=== PATIENT | female | born 1995 | race Caucasian/White ===

== ENCOUNTER 2016-09-23 18:09 | Emergency (ER) | payer MEDICAID ==
[~2016-09-23] VITALS: Ht 157.5 cm; Wt 86.2 kg
[2016-09-23 18:14] VITALS: BP 110/70
[2016-09-23] MEDS ORDERED: LORazepam 1mg tab ORAL ONE (18:30)
--- NOTE | 2016-09-23 18:57 | Emergency Room Report ---
History of Present Illness General Chief Complaint: General Complaint Source: Patient, EMS Present Illness HPI 21-year-old female presents to emergency Department complaining of chest pain/ palpitations, with 9/10 pain in all of her joints in addition to sore throat which she believes is strep throat. Pt states the pain is so strong it makes her nauseated, denies vomiting. She reports chills and night sweats she denies fevers. She states she had Advil prior to arrival. Pt states she usually gets Strep throat approximately 4 times each year. Patient also reports intermittent cough. Patient denies recent travel, ill contacts. Patient denies cardiac history, patient denies dyspnea or pain with breathing. Patient reports that her throat is her most significant symptom at this time. Denies rash, SOB, LOC , AMS, dizziness, Changes in Vision, Sensation, paresthesias, , or a sudden severe headache. Pt denies drug use. Pt requests tramadol for pain. Allergies: Coded Allergies: No Known Allergies (Unverified , 09/23/16) Patient History Past Medical History: see triage record Past Surgical History: none Pertinent Family History: none Last Menstrual Period: on period Now: No Immunizations: UTD Reviewed Nursing Documentation: PMH: Agreed, PSxH: Agreed Nursing Documentation-PMH Past Medical History: No Stated History Review of Systems All Other Systems: negative except mentioned in HPI Physical Exam Vital Signs Date Time Temp Pulse Resp B/P Pulse Ox O2 Delivery O2 Flow Rate FiO2 09/23/16 18:05 98.1 80 16 110/70 98 Room Air Sp02 EP Interpretation: reviewed, normal General Appearance: no apparent distress, alert, GCS 15, non-toxic Head: normocephalic, atraumatic Eyes: bilateral eye PERRL, bilateral eye normal inspection ENT: hearing grossly normal, normal pharynx, no angioedema, normal voice, TMs + canals normal, uvula midline, moist mucus membranes, tonsillar swelling - several tonsiliths are noted., pharyngeal erythema, other - no evidence of tonsillar exudates, or petechiae of the soft palate. Neck: no meningismus, no bony tend Respiratory: chest non-tender, lungs clear, normal breath sounds, no rhonchi, no respiratory distress, no retraction, no accessory muscle use, no wheezing Cardiovascular #1: regular rate, rhythm, no edema Gastrointestinal: normal bowel sounds, non tender, soft, no guarding, no rebound Rectal: deferred Musculoskeletal: back normal, gait/station normal, normal range of motion, non- tender, no calf tenderness Neurologic: alert, oriented x3, responsive, motor strength/tone normal, sensory intact, speech normal Psychiatric: judgement/insight normal, memory normal, mood/affect normal, no suicidal/homicidal ideation, anxious - Pt is very anxious, and attempts to manage her medical care and pharmacological care durring the ED visit. Skin: normal color, no rash, warm/dry, well hydrated Lymphatic: no adenopathy Medical Decision Making PA Attestation Dr. Li is my supervising Physician whom patient management has been discussed with. Diagnostic Impression: Primary Impression: Pharyngitis, acute Qualified Codes: J02.9 - Acute pharyngitis, unspecified Additional Impression: Acute viral syndrome ER Course Pt. presents to the ED c/o : sore throat, tonsillar swelling, and nasal congestion x 2 days, with night sweats, chills, and intermittent cough. Ddx considered but are not limited to: pharyngitis, strep, HAND SHOE CUTTER, ludwigs angina, URI, anxiety, PE, ACS, [place], anxiety Vital signs: are WNL, pt. is afebrile H&PE are most consistent with: acute viral syndrome due to hx of night sweats, chills, and pain in the joints of the body. PE does not suggest acute bacterial infection of the tonsils or pharynx. pt. does not meet [facility] criteria. ORDERS: -EK BPM NSR no acute ST changes, pt. not given asa in ED- interpreted by Dr. Li -BMP: WNL no evidence of acute electrolyte imbalance that would cause palpitations. -UDS: Positive for THC ED INTERVENTIONS: -1mg Ativan po - 8mg Decadron IM Pt Education: d/w pt. antibiotic resistance, went over [facility] criteria, and well as discussed viral vs. bacterial symptoms. DISCHARGE: At this time pt. is stable for d/c to home. Will provide printed patient care instructions, and any necessary prescriptions. Care plan and follow up instructions have been discussed with the patient prior to discharge. Labs Test 09/23/16 18:35 09/23/16 18:40 Urine Opiates Screen Negative (NEGATIVE) Urine Barbiturates Screen Negative (NEGATIVE) Phencyclidine (PCP) Screen Negative (NEGATIVE) Urine Amphetamines Screen Negative (NEGATIVE) Urine Benzodiazepines Screen Negative (NEGATIVE) Urine Cocaine Screen Negative (NEGATIVE) Urine Marijuana (THC) Screen Positive (NEGATIVE) Sodium Level 136 mEQ/L (135-145) Potassium Level 4.2 mEQ/L (3.4-4.9) Chloride Level 94 mEQ/L (98-107) Carbon Dioxide Level 23 mEQ/L (20-30) Anion Gap 19 (5-15) Blood Urea Nitrogen 10 mg/dL (7-23) Creatinine 0.7 mg/dL (0.5-0.9) Estimat Glomerular Filtration Rate > 60 mL/min (>60) Glucose Level 112 mg/dL (74-106) Calcium Level 9.6 mg/dL (8.6-10.2) EKG Diagnostic Results Rate: normal - 88BPM Rhythm: NSR ST Segments: no acute changes ASA given to the pt in ED: No PA Scribe Text interpreted by Dr. Li Last Vital Signs Date Time Temp Pulse Resp B/P Pulse Ox O2 Delivery O2 Flow Rate FiO2 09/23/16 18:14 16 110/70 98 Room Air 09/23/16 18:05 98.1 80 Disposition: HOME, SELF-CARE Condition: Stable Scripts Ibuprofen* (MOTRIN*) 600 Mg Tablet 600 MG ORAL THREE TIMES A DAY, #30 TAB 0 Refills Prov: Katie Taylor 09/23/16 Lidocaine HCl (Lidocaine HCl Viscous) 100 Ml Solution 20 ML PO TID for For Pain, #120 ML Prov: Katie Taylor 09/23/16 Oseltamivir Phosphate (Tamiflu) 75 Mg Capsule 75 MG ORAL TWICE A DAY for 5 Days, CAP Prov: Katie Taylor 09/23/16 Patient Instructions: Pharyngitis, Tonsillitis Additional Instructions: Take medications as directed. Follow up with PCP in 3-5 days, if symptoms persist throat culture is indicated. Return sooner to ED if new symptoms occur, or current symptoms become worse. Katie Taylor Sep 23, 2016 18:57
[2016-09-23 19:00] LABS: ANION GAP 19 (5-15); CALCIUM 9.6 mg/dL (8.6-10.2); CARBON DIOXIDE 23 mEQ/L (20-30); CHLORIDE 94 mEQ/L (98-107); CREATININE 0.7 mg/dL (0.5-0.9); GLOMERULAR FILTRATION RATE > 60 mL/min (>60); HEMOLYSIS 6; POTASSIUM 4.2 mEQ/L (3.4-4.9); SODIUM 136 mEQ/L (135-145)
[2016-09-23] MEDS ORDERED: Dexamethasone 4mg/ml vial IM ONE (19:45)
[2016-09-23 20:15] VITALS: BP 110/70
[2016-09-23] MEDS ORDERED: LIDOCAINE VISCO20 ML PO (20:20)
[2016-09-23] MEDS ORDERED: IBUPROFEN600 MG ORAL (20:20)
[2016-09-23] MEDS ORDERED: TAMIFLU75 MG ORAL (20:20)
--- NOTE | 2016-09-24 17:41 | Cardiology Report ---
APPROVED REPORT EKG Measurement Heart [id number] Normal sinus rhythm Normal ECG
== END 2016-09-23 20:28 | disposition home or self-care (01) ==
LOC: EDBD 18:09 → EMR 18:58
DX: J02.9 Acute pharyngitis, unspecified (principal); B34.9 Viral infection, unspecified
CPT/HCPCS: 36415; 80048; 80300; 93005; 96372; 99283; J1100

== ENCOUNTER 2018-04-25 10:25 | Emergency (ER) | payer MEDICAID ==
[~2018-04-25] VITALS: Ht 157.5 cm; Wt 91.2 kg
[~2018-04-25 10:25] MED LIST: IBUPROFEN600 MG ORAL; LIDOCAINE VISCO20 ML PO; TAMIFLU75 MG ORAL
--- NOTE | 2018-04-25 10:51 | Emergency Room Report ---
History of Present Illness General Chief Complaint: Vaginal Source: Patient Present Illness HPI Patient is a 22-year-old female who presented after increased vaginal discharge as well as followed her. Patient states that she's had prior history of yeast infections as well as bacterial vaginosis in the past. Patient reports having similar odor and discharge. She denies any fever. She denies any severe abdominal pain. Patient had previous been using NuvaRing. She denies being . She is . She denies any recent unprotected sex. Discharge been present for one week. This is described as thick and cottage cheese like Allergies: Coded Allergies: No Known Allergies (Unverified , 09/23/16) Patient History Past Medical History: see triage record Now: No Reviewed Nursing Documentation: PMH: Agreed; PSxH: Agreed Nursing Documentation-PMH Past Medical History: No Stated History Review of Systems All Other Systems: negative except mentioned in HPI Physical Exam Vital Signs Date Time Temp Pulse Resp B/P (MAP) Pulse Ox O2 Delivery O2 Flow Rate FiO2 04/25/18 10:29 98.3 75 19 109/67 96 Room Air 98.2 General Appearance: well appearing, no apparent distress, alert, GCS 15, obese Head: normocephalic, atraumatic ENT: hearing grossly normal, normal voice Neck: full range of motion, supple Respiratory: no respiratory distress, speaking full sentences Cardiovascular #1: normal inspection Gastrointestinal: normal inspection, normal bowel sounds, non tender, soft Genitourinary: normal inspection, no CVA tenderness, deferred Musculoskeletal: normal range of motion, no calf tenderness Neurologic: normal inspection, alert, oriented x3, responsive, screw supervisor III-XII nml as tested, normal gait Psychiatric: mood/affect normal Skin: no rash Medical Decision Making Diagnostic Impression: Primary Impression: Vaginal discharge Additional Impression: Yeast infection ER Course The patient presented for vaginal discharge. Differential diagnosis included was not limited to a yeast infection, physiologic discharge, bacterial vaginosis , gonorrhea, Chlamydia, among others. Patient has a benign exam and does not appear to require any further imaging or laboratory testing at this time. The patient was offered a pelvic exam however she declined. The patient will be empirically treated for yeast as well as bacterial vaginosis. A glucose testing for diabetes was noted to be negative.The patient is advised to follow up with primary care doctor in 1-2 days. Patient is advised to return if any worsening condition or if any changes in status that are concerning. This report is dictated with [employer] rubbish collector software which may occasionally lead to discrepancies related to use of this software. Last Vital Signs Date Time Temp Pulse Resp B/P (MAP) Pulse Ox O2 Delivery O2 Flow Rate FiO2 04/25/18 10:29 98.3 75 19 109/67 96 Room Air 98.2 Status: improved Disposition: HOME, SELF-CARE Condition: Stable Referrals: Chanel Ferguson MD (PCP) Clint Bradshaw MD Apr 25, 2018 10:51
[2018-04-25 11:04] LABS: APPEARANCE,URINE CLEAR; BILIRUBIN, URINE NEGATIVE (NEGATIVE); COLOR,URINE PALE YELLOW; GLUCOSE, URINE (UA) 1+ (NEGATIVE); KETONES,URINE NEGATIVE (NEGATIVE); LEUKOCYTE ESTERASE ,URINE 2+ (NEGATIVE); NITRITE,URINE NEGATIVE (NEGATIVE); PH,URINE 6 (4.5-8.0); PROTEIN,URINE NEGATIVE (NEGATIVE); UROBILINOGEN,URINE NORMAL MG/DL (0.0-1.0)
[2018-04-25] MEDS ORDERED: METROGEL-VAGINA70 G1 VAGIN (11:23)
[2018-04-25 11:29] VITALS: BP 109/67
[2018-04-25] MEDS ORDERED: Fluconazole 100mg tab ORAL ONE (11:30)
== END 2018-04-25 11:31 | disposition home or self-care (01) ==
LOC: EMR 10:43
DX: B37.3 Candidiasis of vulva and vagina (principal)
CPT/HCPCS: 81003; 81025; 82962; 99283